=== PATIENT | male | born 1985 | race Caucasian/White ===

== ENCOUNTER 2020-12-01 23:25 | Emergency (ER) | payer BC ==
[2020-12-02] MEDS ORDERED: FLAGYL500 MG PO (01:42)
[2020-12-02] MEDS ORDERED: BACTRIM DS TAB1 EACH PO (01:42)
== END 2020-12-02 02:01 | disposition home or self-care (01) ==
LOC: ER1 23:25
DX: S61.451A Open bite of right hand, initial encounter (principal); S61.452A Open bite of left hand, initial encounter; S61.411A Laceration without foreign body of right hand, initial encounter; W54.0XXA Bitten by dog, initial encounter; I10 Essential (primary) hypertension; Y92.009 Unspecified place in unspecified non-institutional (private) residence as the place of occurrence of the external cause; Z88.0 Allergy status to penicillin
CPT/HCPCS: 73130; 73140; 90471; 90715; 99283

== ENCOUNTER 2021-01-08 17:44 | Inpatient (IN) | payer BC ==
[~2021-01-08] VITALS: Ht 172.7 cm; Wt 109.0 kg
[~2021-01-08 17:44] MED LIST: BACTRIM DS TAB1 EACH PO; FLAGYL500 MG PO
[2021-01-08 19:16] LABS: HEMOGLOBIN 14.4 gm/dl (14.0-17.5); RED BLOOD COUNT 4.92 M/UL (4.20-5.50); WHITE BLOOD COUNT 5.2 K/UL (4.5-11.0)
[2021-01-08 19:24] LABS: BUN/CREATININE RATIO 9 (0-10)
[2021-01-09 05:34] LABS: HEMOGLOBIN 13.2 gm/dl (14.0-17.5); RED BLOOD COUNT 4.53 M/UL (4.20-5.50); WHITE BLOOD COUNT 4.1 K/UL (4.5-11.0)
[2021-01-09 05:49] LABS: BUN/CREATININE RATIO 14 (0-10)
[2021-01-09] MEDS ORDERED: TOPROL XL25 MG PO (07:58)
[2021-01-09] MEDS ORDERED: BUSPIRONE HCL5 MG PO (08:00)
[2021-01-10 02:50] LABS: HEMOGLOBIN 13.6 gm/dl (14.0-17.5); RED BLOOD COUNT 4.76 M/UL (4.20-5.50); WHITE BLOOD COUNT 4.6 K/UL (4.5-11.0)
[2021-01-10 03:26] LABS: BUN/CREATININE RATIO 20 (0-10)
[2021-01-11 02:46] LABS: HEMOGLOBIN 13.8 gm/dl (14.0-17.5); RED BLOOD COUNT 4.82 M/UL (4.20-5.50)
[2021-01-11 02:47] LABS: WHITE BLOOD COUNT 6.7 K/UL (4.5-11.0)
[2021-01-11 02:59] LABS: BUN/CREATININE RATIO 22 (0-10)
[2021-01-12 03:12] LABS: HEMOGLOBIN 14.6 gm/dl (14.0-17.5); RED BLOOD COUNT 5.12 M/UL (4.20-5.50); WHITE BLOOD COUNT 7.8 K/UL (4.5-11.0)
[2021-01-12 03:37] LABS: BUN/CREATININE RATIO 23 (0-10)
[2021-01-13 03:49] LABS: RED BLOOD COUNT 5.2 M/UL (4.20-5.50); WHITE BLOOD COUNT 9.7 K/UL (4.5-11.0)
[2021-01-13 04:09] LABS: BUN/CREATININE RATIO 19 (0-10)
[2021-01-14 03:32] LABS: HEMOGLOBIN 15.7 gm/dl (14.0-17.5); RED BLOOD COUNT 5.39 M/UL (4.20-5.50)
[2021-01-14 03:43] LABS: WHITE BLOOD COUNT 13.6 K/UL (4.5-11.0)
[2021-01-14 03:45] LABS: BUN/CREATININE RATIO 21 (0-10)
[2021-01-15 05:14] LABS: HEMOGLOBIN 15.2 gm/dl (14.0-17.5); RED BLOOD COUNT 5.22 M/UL (4.20-5.50); WHITE BLOOD COUNT 14.4 K/UL (4.5-11.0)
[2021-01-15 05:40] LABS: BUN/CREATININE RATIO 26 (0-10)
[2021-01-15 11:43] LABS: BUN/CREATININE RATIO 23 (0-10)
== END 2021-01-15 12:43 | disposition short-term general hospital (02) | DRG 208 ==
LOC: ER1 17:44 → PROG CARE 20:21 → CDU 20:21 → PROG CARE 01-09 17:43 → CCU 01-14 14:06
PROVIDERS: Internal Medicine; Internal Medicine Infectious Disease; Preventive Medicine Occupational Medicine; ADMIT Internal Medicine
PROC: XW033G5 Introduction of Sarilumab into Peripheral Vein, Percutaneous Approach, New Technology Group 5 (ICD-10-PCS; 2021-01-08)
PROC: 8E0ZXY6 Isolation (ICD-10-PCS; 2021-01-09)
PROC: XW033E5 Introduction of Remdesivir Anti-infective into Peripheral Vein, Percutaneous Approach, New Technology Group 5 (ICD-10-PCS; 2021-01-10)
PROC: 3E0333Z Introduction of Anti-inflammatory into Peripheral Vein, Percutaneous Approach (ICD-10-PCS; 2021-01-10)
PROC: 5A09457 Assistance with Respiratory Ventilation, 24-96 Consecutive Hours, Continuous Positive Airway Pressure (ICD-10-PCS; 2021-01-14)
PROC: 5A1945Z Respiratory Ventilation, 24-96 Consecutive Hours (ICD-10-PCS; principal; 2021-01-15)
PROC: 0BH18EZ Insertion of Endotracheal Airway into Trachea, Via Natural or Artificial Opening Endoscopic (ICD-10-PCS; 2021-01-15)
PROC: 05HM33Z Insertion of Infusion Device into Right Internal Jugular Vein, Percutaneous Approach (ICD-10-PCS; 2021-01-15)
PROC: B543ZZA Ultrasonography of Right Jugular Veins, Guidance (ICD-10-PCS; 2021-01-15)
PROC: 03HY32Z Insertion of Monitoring Device into Upper Artery, Percutaneous Approach (ICD-10-PCS; 2021-01-15)
PROC: 4A133B1 Monitoring of Arterial Pressure, Peripheral, Percutaneous Approach (ICD-10-PCS; 2021-01-15)
PROC: 4A133J1 Monitoring of Arterial Pulse, Peripheral, Percutaneous Approach (ICD-10-PCS; 2021-01-15)
PROC: 3E033XZ Introduction of Vasopressor into Peripheral Vein, Percutaneous Approach (ICD-10-PCS; 2021-01-15)
DX: U07.1 COVID-19 (principal); J12.82 Pneumonia due to coronavirus disease 2019; J80 Acute respiratory distress syndrome; E87.1 Hypo-osmolality and hyponatremia; I10 Essential (primary) hypertension; E86.0 Dehydration; R94.5 Abnormal results of liver function studies; E87.6 Hypokalemia; Z98.890 Other specified postprocedural states; Z80.9 Family history of malignant neoplasm, unspecified; Z88.0 Allergy status to penicillin; Z83.6 Family history of other diseases of the respiratory system; Z83.3 Family history of diabetes mellitus
CPT/HCPCS: 31500; 36415; 36600; 71045; 80048; 80053; 81001; 82550; 82553; 82803; 82962; 83036; 83605; 83690; 83735; 83874; 83880; 84484; 85025; 85027; 85379; 85610; 85652; 85730; 86140; 87086; 93005; 94002; 94640; 94660; 94760; 99285; A6212; G0378; J0330; J0456; J0692; J1100; J1650; J2250; J2270; J2704; J3480; J7030

== ENCOUNTER → 2021-06-16 | Outpatient (CLI) | payer BC ==
[~2021-06-16] MED LIST changes: +BUSPIRONE HCL5 MG PO; +TOPROL XL25 MG PO
== END ==
LOC: HEART 5 10:51
DX: Z09 Encounter for follow-up examination after completed treatment for conditions other than malignant neoplasm (principal); Z86.16 Personal history of COVID-19
CPT/HCPCS: 94060; 94729

== ENCOUNTER → 2021-06-24 | Outpatient (CLI) | payer OTHER | LOC: KOH-I 11:30 | DX: R06.02 Shortness of breath (principal); Z86.16 Personal history of COVID-19; J90 Pleural effusion, not elsewhere classified; R59.1 Generalized enlarged lymph nodes; E04.9 Nontoxic goiter, unspecified; R91.8 Other nonspecific abnormal finding of lung field | CPT/HCPCS: 71250 ==